=== PATIENT | male | born 1985 | race Hispanic/Latino ===

== ENCOUNTER 2017-01-07 06:20 | Day surgery (SDC) | payer BC ==
[2017-01-07 06:36] VITALS: BMI 36.6
[2017-01-07 06:59] VITALS: RESP 18
[2017-01-07] MEDS ORDERED: Propofol 10 mg/ml Inj (20 ML) ONE ×2 (07:28→07:56)
[2017-01-07] MEDS ORDERED: Lidocaine 1% 5ml Abboject IV ONE (07:28)
[2017-01-07] MEDS ORDERED: Lidocaine 2% Jelly (5 ml) TOP ONE (07:28)
[2017-01-07] MEDS ORDERED: Midazolam 2 MG/2 ML VIAL ONE (07:28)
[2017-01-07] MEDS ORDERED: Lactated Ringer's 1,000 ML IV ONE (07:50)
[2017-01-07] MEDS ORDERED: HYDROmorphone 0.5 mg/0.5 ml ISec IVP PRN (08:58)
--- NOTE | 2017-01-07 09:00 | PCM.SURG1 ---
Surgeon's Initial Post Op Note - Surgeon's Notes Surgeon: Bayron Nava MD Hand Striper: Da Flanagan PA-C Type of Anesthesia: General Endo Pre-Operative Diagnosis: Left hand 4th metacarpal displaced fx Operative Findings: see op report Post-Operative Diagnosis: same as pre-op dx Operation Performed: Closed reduction and pinning with application of splint of left hand 4th metacarpal fx Specimen/Specimens Removed: none Estimated Blood Loss: EBL {In ML}: 0 Date of Surgery/Procedure: 01/07/17 Time of Surgery/Procedure: 08:15
[2017-01-07] MEDS ORDERED: Oxycodone/Acetaminophen 5/325 mg Tab PO PRN (09:01)
[2017-01-07] MEDS: HYDROmorphone 0.5 mg/0.5 ml ISec IVP PRN ×7 (09:10→09:42)
[2017-01-07] MEDS: Lactated Ringer's 1,000 ML IV SCH ×2 (11:10→11:15)
[2017-01-07] MEDS ORDERED: Oxycodone/Acetaminophen 5/325 mg Tab PO ONE (11:30)
[2017-01-07 12:45] VITALS: BP 128/82; PULSE 78; TEMP 97.7
[2017-01-07 12:56] VITALS: O2SAT 99
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
== END 2017-01-07 12:45 | disposition home or self-care (01) ==
LOC: H.OPSURG 06:20
PROVIDERS: ATTEND Orthopaedic Surgery
DX: S62.305A Unspecified fracture of fourth metacarpal bone, left hand, initial encounter for closed fracture (principal); Y04.0XXA Assault by unarmed brawl or fight, initial encounter
CPT/HCPCS: 26608; J1170; J1885; J2250; J2405; J2704; J3010; J7120